=== PATIENT | male | born 1975 | race Caucasian/White ===

== ENCOUNTER 2016-08-14 07:13 | Emergency (ER) | payer SELFPAY ==
[~2016-08-14] VITALS: Ht 180.3 cm; Wt 90.0 kg
[2016-08-14 07:16] VITALS: BP 110/98
[2016-08-14 08:47] LABS: INFLUENZA A VIRAL ANTIGEN NEGATIVE; INFLUENZA B VIRAL ANTIGEN POSITIVE
[2016-08-14] MEDS ORDERED: MOTRIN800 MG PO (08:50)
[2016-08-14] MEDS ORDERED: TAMIFLU75 MG PO (08:50)
== END 2016-08-14 09:04 | disposition home or self-care (01) ==
LOC: EME 07:13
PROVIDERS: Emergency Medicine
DX: J11.1 Influenza due to unidentified influenza virus with other respiratory manifestations (principal)
CPT/HCPCS: 87502; 99281; 99284

== ENCOUNTER 2016-08-26 12:03 | Inpatient (IN) | payer SELFPAY ==
[~2016-08-26] VITALS: Ht 180.3 cm; Wt 85.2 kg
[~2016-08-26 12:03] MED LIST: MOTRIN800 MG PO; TAMIFLU75 MG PO
[2016-08-26 13:03] LABS: CREATININE 0.9 mg/dL (0.6-1.3)
[2016-08-26 13:12] LABS: EOSINOPHIL COUNT 0.1 K/uL (0-0.3); HEMATOCRIT 40.9 % (38.0-50.0); IMMATURE GRANULOCYTE (%) 0.2 % (0.0-0.7); INSTRUMENT ABS NEUTROPHIL CT 3.1 K/uL; LYMPHOCYTE COUNT 1.8 K/uL (1.0-2.8); MCH 29.9 PG (29.0-34.0); MCHC 33.7 G/DL (30.0-36.0); MCV 88.7 FL (86-99); MEAN PLAT.VOLUME 9.6 uM^3 (9.0-12.4); MONOCYTE (%) 8.3 % (3-12); MONOCYTE COUNT 0.5 K/uL (0-0.8); NEUTROPHIL (%) 56.4 % (45-76); NEUTROPHIL COUNT 3.1 K/uL (1.8-6.4); PLATELET COUNT 407 K/uL (156-360); RBC DIS.WIDTH-CV 12.2 % (11.8-14.6); RBC DIS.WIDTH-SD 39.5 % (39-53); RED BLOOD COUNT 4.61 M/uL (4.00-5.50); WHITE BLOOD COUNT 5.5 K/uL (4.1-10.2)
[2016-08-26 13:21] LABS: AMYLASE 43 IU/L (1-118); CHLORIDE 108 mEq/L (99-109); POTASSIUM 4.3 mEq/L (3.7-5.4); SODIUM 140 mEq/L (136-147)
[2016-08-26 13:22] LABS: PROTHROMBIN TIME 10.2 (9.2-11.2); PTT 24.5 (25-32)
[2016-08-26 13:23] LABS: GLUCOSE 90 mg/dL (70-99)
[2016-08-26 13:24] LABS: ANION GAP 10 MEQ/L (2-14)
[2016-08-26 13:26] LABS: GFR ESTIMATE (CALCULATED) > 59 mL/min/; SERUM ETHYL ALCOHOL 10 mg/dL
[2016-08-26 13:27] LABS: UREA NITROGEN (BUN) 11 mg/dL (9-23)
[2016-08-26 13:30] LABS: LIPASE 22 U/L (1.0-51.0)
[2016-08-26 13:33] LABS: TROP-I INTERPRETATION NEGATIVE; TROPONIN-I < 0.01 ng/mL (0.0-0.30)
[2016-08-26 15:16] LABS: ADD MIUA? NO; BILIRUBIN NEGATIVE; BLOOD NEGATIVE; COLOR YELLOW ((YELLOW)); GLUCOSE (STRIP) NEGATIVE; KETONES NEGATIVE; LEUKOCYTES NEGATIVE; NITRITE NEGATIVE; PROTEIN (STRIP) NEGATIVE; SPECIFIC GRAVITY 1.038 (1.000-1.030); UCUL ADDED? NO; UROBILINOGEN 0.2 MG/DL (0.2-1.0)
[2016-08-26 15:30] LABS: AMPHETAMINE NEGATIVE (500 ng/mL); BARBITURATES NEGATIVE (200 ng/mL); BENZODIAZEPINES NEGATIVE (150 ng/mL); COCAINE NEGATIVE (150 ng/mL); INTERNAL CONTROLS VALID? YES; METHADONE NEGATIVE (200 ng/mL); METHAMPHETAMINE NEGATIVE (500 ng/mL); OPIATES (MORPHINE) NEGATIVE (100 ng/mL); OXYCODONE NEGATIVE (100 ng/mL); PHENCYCLIDINE NEGATIVE (25 ng/mL); PROPOXYPHENE NEGATIVE (300 ng/mL); THC CANNABINOIDS NEGATIVE (50 ng/mL); TRICYCLIC ANTIDEPRESSANTS NEGATIVE (300 ng/mL)
[2016-08-26] MEDS ORDERED: ADVIL200 MG PO (16:10)
[2016-08-26] MEDS ORDERED: TYLENOL EXTRA500 MG PO (16:10)
[2016-08-26 17:46] VITALS: BP 124/68
[2016-08-26 19:31] LABS: TROP-I INTERPRETATION NEGATIVE; TROPONIN-I 0.01 ng/mL (0.0-0.30)
[2016-08-26 20:00] VITALS: BP 114/73
[2016-08-27] VITALS: BP 133/63
[2016-08-27 01:12] LABS: TROP-I INTERPRETATION NEGATIVE; TROPONIN-I < 0.01 ng/mL (0.0-0.30)
[2016-08-27 03:44] VITALS: BP 105/70
[2016-08-27 07:19] LABS: HEMATOCRIT 38.3 % (38.0-50.0); MCH 29.7 PG (29.0-34.0); MCHC 33.2 G/DL (30.0-36.0); MCV 89.7 FL (86-99); MEAN PLAT.VOLUME 9.2 uM^3 (9.0-12.4); PLATELET COUNT 372 K/uL (156-360); RBC DIS.WIDTH-CV 12.5 % (11.8-14.6); RBC DIS.WIDTH-SD 40.8 % (39-53); RED BLOOD COUNT 4.27 M/uL (4.00-5.50); WHITE BLOOD COUNT 6.8 K/uL (4.1-10.2)
[2016-08-27 07:35] LABS: Estimated Average Glucose 114 mg/dL (70-123); HEMOGLOBIN A1c (GLYCOHEMOGLOB) 5.6 % HGB (Below 5.7)
[2016-08-27 07:41] LABS: ANION GAP 7 MEQ/L (2-14); CHLORIDE 105 MEQ/L (99-109); GFR ESTIMATE (CALCULATED) > 59 mL/min/; GLUCOSE 89 mg/dL (70-99); HDL CHOLESTEROL 36 MG/DL (Desirable>=40); LDL CHOLESTEROL 128 mg/dL (Desirable<100); NON-HDL CHOLESTEROL 155 mg/dL (Desirable<160); POTASSIUM 4.4 MEQ/L (3.7-5.4); SAMPLE HEMOLYSIS CHECK 0; SAMPLE ICTERIC CHECK 0; SAMPLE LIPEMIA CHECK 0; SODIUM 139 MEQ/L (136-147); TOTAL CHOLESTEROL 191 mg/dL (Desirable<200); TRIGLYCERIDES 136 MG/DL (Normal: <150); UREA NITROGEN (BUN) 15 mg/dL (9-23)
[2016-08-27 08:00] VITALS: BP 111/78
[2016-08-27 11:30] LABS: TREPONEMA ANTIBODY NEGATIVE (NEGATIVE)
[2016-08-27 11:53] VITALS: BP 110/76
== END 2016-08-27 16:00 | disposition home or self-care (01) | DRG 312 ==
LOC: EME 12:03 → EDOF 15:42 → 5SOUTH 15:42
PROVIDERS: Emergency Medicine; Hospitalist
DX: R55 Syncope and collapse (principal); J10.89 Influenza due to other identified influenza virus with other manifestations; G81.94 Hemiplegia, unspecified affecting left nondominant side; R94.31 Abnormal electrocardiogram [ECG] [EKG]; Z86.73 Personal history of transient ischemic attack (TIA), and cerebral infarction without residual deficits
CPT/HCPCS: 70496; 70498; 70551; 80047; 80048; 80061; 81003; 82150; 82607; 83036; 83690; 84443; 84484; 85025; 85027; 85610; 85730; 86038; 86780; 86850; 86900; 86901; 93005; 93306; 99281; 99285; G0480; J7030

== ENCOUNTER 2017-02-26 13:35 | Emergency (ER) | payer SELFPAY ==
[~2017-02-26] VITALS: Ht 180.3 cm; Wt 83.4 kg
[~2017-02-26 13:35] MED LIST changes: +ADVIL200 MG PO; +TYLENOL EXTRA500 MG PO
[2017-02-26 17:00] VITALS: BP 113/94
== END 2017-02-26 17:00 | disposition home or self-care (01) ==
LOC: EME 13:35
DX: S86.912A Strain of unspecified muscle(s) and tendon(s) at lower leg level, left leg, initial encounter (principal); W17.89XA Other fall from one level to another, initial encounter
CPT/HCPCS: 99281; 99283

== ENCOUNTER 2017-12-30 16:38 | Emergency (ER) | payer SELFPAY ==
[~2017-12-30] VITALS: Ht 180.3 cm; Wt 87.6 kg
[2017-12-30 17:38] LABS: SOURCE URINE
[2017-12-30 17:53] LABS: APPEARANCE CLEAR ((CLEAR)); BILIRUBIN NEGATIVE; BLOOD NEGATIVE; COLOR STRAW ((YELLOW)); GLUCOSE (STRIP) NEGATIVE; KETONES NEGATIVE; LEUKOCYTES NEGATIVE; NITRITE NEGATIVE; PROTEIN (STRIP) NEGATIVE; SPECIFIC GRAVITY 1.003 (1.000-1.030); UCUL ADDED? NO; UROBILINOGEN 0.2 MG/DL (0.2-1.0)
[2017-12-30] MEDS ORDERED: CIPRO500 MG PO (18:21)
[2017-12-30] MEDS ORDERED: PYRIDIUM200 MG PO (18:21)
[2017-12-30 18:28] VITALS: BP 144/79
[2018-01-01 13:04] LABS: CHLAMYDIA TRACHOMATIS NEGATIVE; NEISSERIA GONORRHOEAE NEGATIVE
== END 2017-12-30 18:22 | disposition home or self-care (01) ==
LOC: EME 16:38
PROVIDERS: Physician Assistant
DX: N34.2 Other urethritis (principal); Z11.3 Encounter for screening for infections with a predominantly sexual mode of transmission
CPT/HCPCS: 81003; 87491; 87591; 99281; 99283

== ENCOUNTER 2018-01-05 09:17 | Emergency (ER) | payer SELFPAY ==
[~2018-01-05] VITALS: Ht 180.3 cm; Wt 86.8 kg
[~2018-01-05 09:17] MED LIST changes: +CIPRO500 MG PO; +PYRIDIUM200 MG PO
[2018-01-05 10:28] LABS: SOURCE URINE
[2018-01-05 10:35] LABS: APPEARANCE CLEAR ((CLEAR)); BILIRUBIN NEGATIVE; BLOOD SMALL; COLOR YELLOW ((YELLOW)); GLUCOSE (STRIP) NEGATIVE; KETONES NEGATIVE; LEUKOCYTES NEGATIVE; NITRITE NEGATIVE; PROTEIN (STRIP) NEGATIVE; SPECIFIC GRAVITY 1.015 (1.000-1.030); UROBILINOGEN 0.2 MG/DL (0.2-1.0)
[2018-01-05 10:42] LABS: BACTERIA RARE /HPF; EPITHELIAL CELLS NONE SEEN /HPF; MUCUS TRACE /LPF; RED BLOOD CELLS 0-5 /HPF (0-5); UCUL ADDED? NO; WHITE BLOOD CELLS 0-5 /HPF (0-5)
[2018-01-05] MEDS ORDERED: BACTRIM,SEPT1 TABLET PO (11:29)
[2018-01-05] MEDS ORDERED: PYRIDIUM200 MG PO (11:29)
[2018-01-05 12:21] VITALS: BP 144/103
[2018-01-06 12:57] LABS: CHLAMYDIA TRACHOMATIS NEGATIVE; NEISSERIA GONORRHOEAE NEGATIVE
== END 2018-01-05 12:22 | disposition home or self-care (01) ==
LOC: EME 09:17
PROVIDERS: Emergency Medicine
DX: N34.2 Other urethritis (principal)
CPT/HCPCS: 81003; 87491; 87591; 99281; 99284; J0696